=== PATIENT | female | born 1980 | race Caucasian/White ===

== ENCOUNTER → 2016-03-11 | Outpatient (CLI) | payer OTHER ==
[~2016-03-11] MED LIST: ADVIN25050 INH; ALBU1AER9 INH; BISA10SU7 PR; BNT20 PO; CYAN100020 PO; DIPH25CA65 PO; DSY100 PO; EFF75 PO; ETONMIS VAGRING; FLUO40CA8 PO; FLVHFA44 INH; FRN PO; GABA-112 PO; LYR50 PO; MULT-506 PO; NAPR-1168 PO; POLY335019 PO; PROM25TA9 PO; SUMA100T16 PO; SYMIN160 INH; TIZA4CAP PO; TRAZ50TA35 PO; UNABLE; VNTHFA/IN INH; ZNF/4 PO
== END | disposition home or self-care (01) ==
LOC: C.PAPS 14:22
PROVIDERS: ATTEND Obstetrics & Gynecology
DX: R87.610 Atypical squamous cells of undetermined significance on cytologic smear of cervix (ASC-US) (principal)

== ENCOUNTER → 2016-03-11 | Outpatient (CLI) | payer OTHER | END | disposition home or self-care (01) | LOC: C.PATHSPEC 13:31 | PROVIDERS: ATTEND Obstetrics & Gynecology | DX: N72 Inflammatory disease of cervix uteri (principal) ==

== ENCOUNTER 2016-05-19 12:00 | Emergency (ER) | payer OTHER ==
[~2016-05-19] VITALS: Ht 160 cm; Wt 58.4 kg
[~2016-05-19 12:00] MED LIST changes: -BISA10SU7 PR; -CYAN100020 PO; -DIPH25CA65 PO; -DSY100 PO; -EFF75 PO; -ETONMIS VAGRING; -FLVHFA44 INH; -LYR50 PO; -MULT-506 PO; -NAPR-1168 PO; -POLY335019 PO; -PROM25TA9 PO; -SUMA100T16 PO; -SYMIN160 INH; -TIZA4CAP PO; -TRAZ50TA35 PO; -VNTHFA/IN INH; -ZNF/4 PO
[2016-05-19 12:16] VITALS: TEMP 36.8; O2SAT 99; Ht 160 cm; Wt 58.4 kg
[2016-05-19] MEDS ORDERED: DiphenhydrAMINE HCL 50 MG/ML VIAL IV STA (12:21)
[2016-05-19] MEDS ORDERED: MoRPHine SULFATE 4 MG/ML 1 ML CARP\\VIAL IV STA (12:21)
[2016-05-19] MEDS ORDERED: SODIUM CHLORIDE 0.9% 1000ML 1,000 ML IV STA (12:21)
[2016-05-19] MEDS ORDERED: KETOROLAC TROMETHAMINE 30 MG/ML VIAL IV STA (12:21)
[2016-05-19] MEDS ORDERED: PROCHLORPERAZINE 5 MG/ML 2 ML VIAL IV STA (12:21)
[2016-05-19] MEDS ORDERED: DEXAMETHASONE SOD INJ 10 MG/ML VIAL IV ONE (12:30)
[2016-05-19] MEDS ORDERED: TRAZ50TA35 PO (12:58)
[2016-05-19] MEDS ORDERED: SYMIN160 INH (12:58)
[2016-05-19 14:32] VITALS: BP 117/74; PULSE 82
--- NOTE | 2016-05-19 15:20 | EMERGENCY ROOM VISIT NOTE ---
History Report prepared by Karen: Becky Lanza Under the Supervision of: Dr. Rian Antonio M.D. First contact with patient: 12:19 Chief Complaint: HEADACHE Stated Complaint: MIGRAINE, NAUSEA History of Present Illness The patient is a 35 year old female who presents to the Emergency Room with complaints of a persistent headache starting 2 days ago around 0200. The pain is present in the back of her head and is present on both sides of her head. She has experienced this pain before and can usually resolve it with Imitrex, but has experienced no relief this time. She has had surgery for migraines and has presented to the ED before with similar symptoms. In the ED, she can usually find relief with a cocktail of drugs. She is experiencing some nausea and sensitivity to light. She denies any falls, vomiting, fever, or other symptoms. Source of History: patient Onset: 2 days ago Position: head Quality: ache Timing: other (persistent) Modifying Factors (Worsening): other (light) Associated Symptoms: + nausea, No fevers, No vomiting Note: Pt reports no relief with Imitrex. Review of Systems See HPI for pertinent positives & negatives. A total of 10 systems reviewed and were otherwise negative. Past Medical & Surgical Medical Problems: (1) Asthma (2) Bronchitis (3) Pneumonia Family History Cancer Diabetes mellitus FH: heart disease Hypertension Kidney stones Social History Smoking Status: Never Smoker Alcohol Use: none Marital Status: single Housing Status: lives with family Occupation Status: employed Current/Historical Medications Scheduled Albuterol Hfa (Ventolin Hfa), 2-4 PUFFS INH Q6H Budesonide/Formoterol Fumarate (Symbicort 160/4.5 Inhaler ), 2 PUFFS INH BID Tizanidine (Tizanidine HCl), 2 MG PO DAILY Trazodone Hcl (Trazodone), 50-100 MG PO HS Venlafaxine Hcl (Effexor), 150 MG PO DAILY Scheduled PRN Promethazine Hcl (Phenergan), 25 MG PO Q6H PRN for Nausea Allergies Coded Allergies: Codeine (Verified Allergy, Unknown, ITCHINESS, 05/19/16) Hydrocodone (Verified Allergy, Unknown, 05/19/16) Physical Exam Vital Signs Date Time Temp Pulse Resp B/P Pulse Ox O2 Delivery O2 Flow Rate FiO2 05/19/16 14:32 82 117/74 05/19/16 12:16 36.8 89 18 142/87 99 Room Air Physical Exam GENERAL: Patient is in no acute distress. HEENT: No acute trauma, normocephalic atraumatic, mucous membranes moist, no nasal congestion, no scleral icterus. Pupils equal and reactive to light. NECK: No stridor, no adenopathy, no meningismus, trachea is midline. LUNGS: Clear to auscultation bilaterally, no wheeze, no rhonchi, breath sounds equal. HEART: Without murmurs gallops or rubs, regular rate and rhythm. ABDOMEN: Soft, nontender, bowel sounds positive, no hernias, no peritonitis. EXTREMITIES: No cyanosis or edema, full range of motion of all the joints without pain or difficulty, no signs for acute trauma. NEUROLOGIC: Oriented x 3, no acute motor or sensory deficits, no focal weakness. No cerebellar deficits. SKIN: No rash, no jaundice, no diaphoresis Medical Decision & Procedures Medications Administered Medications (Trade) Dose Ordered Sig/Wagner Route Start Time Stop Time Status Last Admin Dose Admin Sodium Chloride (Nss 1000ml) 1,000 ml @ 999 mls/hr Q1H1M STAT IV 05/19/16 12:21 05/19/16 13:21 DC 05/19/16 12:47 999 MLS/HR Prochlorperazine Edisylate (Compazine Inj) 10 mg NOW STAT IV 05/19/16 12:21 05/19/16 12:27 DC 05/19/16 12:46 10 MG Ketorolac Tromethamine (Toradol Inj) 30 mg NOW STAT IV 05/19/16 12:21 05/19/16 12:27 DC 05/19/16 12:42 30 MG Diphenhydramine HCl (Benadryl Inj) 50 mg NOW STAT IV 05/19/16 12:21 05/19/16 12:27 DC 05/19/16 12:42 50 MG Morphine Sulfate (MoRPHine SULFATE INJ) 4 mg NOW STAT IV 05/19/16 12:21 05/19/16 12:27 DC 05/19/16 12:45 4 MG Dexamethasone Sodium Phosphate (Decadron Inj) 10 mg NOW ONCE IV 05/19/16 12:30 05/19/16 12:31 DC 05/19/16 12:43 10 MG ED Course 1220: The patient was evaluated in room C11. A complete history and physical exam was performed. 1221: Morphine Sulfate 4 mg IV, Benadryl Inj 50 mg IV, Toradol Inj 30 mg IV, Compazine Inj 10 mg IV, NSS 1000 ml @ 999 mls/hr IV. 1230: Decadron Inj 10 mg IV. 1420: I reevaluated the patient. She is feeling better. I discussed the treatment plan with her. She verbalized understanding and agreement. She will be discharged home. Medical Decision Differential diagnoses: migraine headache, meningitis, intracranial bleeding, tension headache, dehydration, trauma. The patient presents with a headache that she describes as a migraine. She has had previous similar migraines. On exam, she is not febrile or toxic. There are no focal neurologic findings. She has no evidence for meningismus. The patient received IV saline, IV Decadron, IV Compazine, IV Benadryl, IV Toradol and IV morphine. She feels markedly better. The patient's headache does sound migrainous. She is doing well and she is feeling improved. She is being discharged home. Impression Primary Impression: Headache Scribe Attestation The scribe's documentation has been prepared under my direction and personally reviewed by me in its entirety. I confirm that the note above accurately reflects all work, treatment, procedures, and medical decision making performed by me. Departure Information Dispostion Home / Self-Care Referrals Jose Alfredo Osman MD Forms HOME CARE DOCUMENTATION FORM, IMPORTANT VISIT INFORMATION Patient Instructions [facility] Additional Instructions rest sleep fluids return if worsening
[2016-08-11] MEDS ORDERED: EFF75 PO (12:58)
[2016-08-11] MEDS ORDERED: VNTHFA/IN INH (12:58)
[2016-08-11] MEDS ORDERED: ZNF/4 PO (12:58)
[2016-08-11] MEDS ORDERED: PROM25TA9 PO (12:58)
== END 2016-05-19 14:54 | disposition home or self-care (01) ==
LOC: C.EDB 12:03 → C.EDC 14:54
DX: R51 Headache (principal); J45.909 Unspecified asthma, uncomplicated; Z80.9 Family history of malignant neoplasm, unspecified; Z83.3 Family history of diabetes mellitus; Z82.49 Family history of ischemic heart disease and other diseases of the circulatory system; Z84.1 Family history of disorders of kidney and ureter; Z79.899 Other long term (current) drug therapy

== ENCOUNTER 2016-07-21 20:39 | Emergency (ER) | payer OTHER ==
[~2016-07-21] VITALS: Ht 160 cm; Wt 61.1 kg
[~2016-07-21 20:39] MED LIST changes: -ADVIN25050 INH; -ALBU1AER9 INH; -BNT20 PO; -FLUO40CA8 PO; -FRN PO; -GABA-112 PO; +SYMIN160 INH; +TRAZ50TA35 PO; -UNABLE
[2016-07-21 20:41] VITALS: TEMP 36.9; Ht 160 cm; Wt 61.1 kg
[2016-07-21] MEDS ORDERED: LORAZEPAM 2 MG/ML 1 ML VIAL IV STA (20:58)
[2016-07-21] MEDS ORDERED: KETOROLAC TROMETHAMINE 30 MG/ML VIAL IV STA (20:58)
[2016-07-21] MEDS ORDERED: SODIUM CHLORIDE 0.9% 1000ML 1,000 ML IV STA (20:58)
[2016-07-21] MEDS ORDERED: DiphenhydrAMINE HCL 50 MG/ML VIAL IV STA (20:58)
[2016-07-21] MEDS ORDERED: PROCHLORPERAZINE 5 MG/ML 2 ML VIAL IV STA (20:58)
[2016-07-21] MEDS ORDERED: HYDROmorphone INJ 0.5 MG/0.5 ML SYR IV STA ×2 (20:58→22:41)
[2016-07-21] MEDS ORDERED: DEXAMETHASONE SOD INJ 10 MG/ML VIAL IV ONE (21:00)
--- NOTE | 2016-07-21 21:42 | EMERGENCY ROOM VISIT NOTE ---
History Report prepared by Karen: Beatrice Su Under the Supervision of: Dr. Kristie Leary D.O. 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 The patient rates her pain as a 10/10 in severity. The patient states that she has had chronic daily migraines since childhood and sees a neurologist and pain management to deal with her migraines. The patient states that she has a family history of chronic migraines. 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 She states that this migraine came on fast and that they usually build over time instead. 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 That patient states at the weather, cycle and allergies also seem to worsen her headaches when they change. The patient states that she recently had cold symptoms including a cough which she recovered. She denies any chills or fevers. She states that with her migraine she has numbness and tingling in both hands and in her face as well as nausea and vomiting.She states that she also has dizziness and lightheadedness with her migraine and is unable to look up due to that. She denies any recent travel or change in medications. The patient states that light worsens her migraine. The patient states that last year she had 2 decompression surgeries and is currently waiting on getting a stimulator. 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 Review of Systems See HPI for pertinent positives & negatives. A total of 10 systems reviewed and were otherwise negative. Past Medical & Surgical Medical Problems: (1) Asthma (2) Bronchitis (3) Pneumonia Family History Cancer Diabetes mellitus FH: heart disease Hypertension Kidney stones Social History Smoking Status: Never Smoker Alcohol Use: none Marital Status: single Housing Status: lives with family Occupation Status: employed Current/Historical Medications Scheduled Bisacodyl (Bisac-Evac), 10 MG MS DAILY/PRN Cyanocobalamin (Vitamin B12), 1,000 MCG PO DAILY Fluticasone Propionate (Flovent Hfa), 2 PUFFS INH BID Multivitamin (Multivitamin), 1 TAB PO DAILY Naproxen Ds (Naprosyn Ds), 550 MG PO PRN/UD Pregabalin (Lyrica), 50 MG PO BID Sumatriptan Succinate (Imitrex), 100 MG PO PRN/UD Tizanidine (Tizanidine HCl), 8 MG PO HS Trazodone Hcl (Trazodone), 50-100 MG PO HS Venlafaxine Hcl (Effexor), 150 MG PO DAILY Scheduled PRN Albuterol Hfa (Ventolin Hfa), 2-4 PUFFS INH Q6H PRN for Wheezing Diphenhydramine Hcl (Benadryl Allergy), 25 MG PO Q8 PRN for UNDECIDED Polyethylene Glycol 3350 (Miralax), 17 GM PO DAILY PRN for Constipation Promethazine Hcl (Phenergan), 25 MG PO Q6H PRN for Nausea Allergies Coded Allergies: Codeine (Verified Allergy, Unknown, ITCHINESS, 05/19/16) Hydrocodone (Verified Allergy, Unknown, 05/19/16) Physical Exam Vital Signs Date Time Temp Pulse Resp B/P Pulse Ox O2 Delivery O2 Flow Rate FiO2 07/21/16 23:02 70 20 115/66 98 07/21/16 22:25 96 20 109/59 96 Room Air 07/21/16 21:27 105 20 147/91 97 Room Air 07/21/16 20:41 36.9 77 18 143/94 98 Room Air Physical Exam GENERAL: alert, well appearing, well nourished, no distress, non-toxic EYE EXAM: normal conjunctiva, PERRL and EOM's grossly intact. Photophobic. OROPHARYNX: no exudate, no erythema, lips, buccal mucosa, and tongue normal and mucous membranes are moist NECK: supple, no nuchal rigidity, no adenopathy, non-tender LUNGS: Clear to auscultation. Normal chest wall mechanics HEART: no murmurs, S1 normal and S2 normal ABDOMEN: abdomen soft, non-tender, normo-active bowel sounds, no masses, no rebound or guarding. BACK: Back is symmetrical on inspection and there is no deformity, no midline tenderness, no CVA tenderness. SKIN: no rashes and no bruising UPPER EXTREMITIES: upper extremities are grossly normal. LOWER EXTREMITIES: No pitting edema. NEURO EXAM: Normal sensorium, cranial nerves II-XII grossly intact, normal speech, no gross weakness of arms, no gross weakness of legs. No drift. Finger to nose intact. Gross sensation intact. Medical Decision & Procedures Medications Administered Medications (Trade) Dose Ordered Sig/Wagner Route Start Time Stop Time Status Last Admin Dose Admin Sodium Chloride (Nss 1000ml) 1,000 ml @ 999 mls/hr Q1H1M STAT IV 07/21/16 20:58 07/21/16 21:58 DC 07/21/16 21:24 999 MLS/HR Ketorolac Tromethamine (Toradol Inj) 30 mg NOW STAT IV 07/21/16 20:58 07/21/16 21:00 DC 07/21/16 21:26 30 MG Diphenhydramine HCl (Benadryl Inj) 25 mg NOW STAT IV 07/21/16 20:58 07/21/16 21:00 DC 07/21/16 21:26 25 MG Lorazepam (Ativan Inj) 1 mg NOW STAT IV 07/21/16 20:58 07/21/16 21:00 DC 07/21/16 21:25 1 MG Dexamethasone Sodium Phosphate (Decadron Inj) 10 mg NOW ONCE IV 07/21/16 21:00 07/21/16 21:01 DC 07/21/16 21:25 10 MG Hydromorphone HCl (Dilaudid Inj) 0.5 mg NOW STAT IV 07/21/16 20:58 07/21/16 21:00 DC 07/21/16 20:58 0.5 MG Prochlorperazine Edisylate (Compazine Inj) 5 mg NOW STAT IV 07/21/16 20:58 07/21/16 21:00 DC 07/21/16 21:26 5 MG Hydromorphone HCl (Dilaudid Inj) 0.25 mg NOW STAT IV 07/21/16 22:41 07/21/16 22:42 DC 07/21/16 22:58 0.25 MG ED Course 2050: The patient was evaluated in room C3. A complete history and physical exam was performed. 2057: Ordered Compazine Inj 5 mg IV, Dilaudid Inj 0.5 mg IV, Ativan Inj 1 mg IV , Benadryl Inj 25 mg IV, Toradol Inj 30 mg IV, Sodium Chloride 1,000 ml @ 999 mls/hr IV. 2100: Ordered Decadron Inj 10 mg IV. 2139: I reevaluated the patient and she was sleeping. []: Upon reevaluation, the patient is feeling better. I discussed the findings and the treatment plan with the patient. She verbalizes agreement and understanding. The patient was discharged home. Medical Decision The patient is a 35 year old female who presents to the ED with complaints of a migraine. Differential diagnoses include but are not limited to migraine headache, meningitis, sinusitis, CO exposure, ICH, SAH, infection, tumor, headache, sinus thrombosis, arterial dissection, as well as others were entertained. Patient well-appearing here despite complaints. Patient states acute exacerbation of her usual chronic migraines which she is had previously. States headache is not the worst of her life, no recent illness or fevers, doubt meningitis/encephalitis. Doubt subarachnoid hemorrhage. Patient with normal nonfocal neuro exam at bedside, doubt CVA or dissection. No other change in symptoms, patient has had prior neuroimaging and does regular see neurology. Doubt intracranial abscess or tumor. Patient's vital signs stable throughout, was tolerating sips of by mouth at bedside, was improved following medication here. Discussed symptoms to watch and return for, close follow-up with neurology, she verbalized understanding was agreeable with plan. Impression Primary Impression: Headache Scribe Attestation The scribe's documentation has been prepared under my direction and personally reviewed by me in its entirety. I confirm that the note above accurately reflects all work, treatment, procedures, and medical decision making performed by me. Departure Information Dispostion Home / Self-Care Forms HOME CARE DOCUMENTATION FORM, IMPORTANT VISIT INFORMATION Patient Instructions My [facility] Additional Instructions Please continue regular medications as prescribed. Please follow-up with your neurologist. If you have any recurrent or worsening pain, develop vomiting, fevers, dizziness, vision changes, or any other new concerns, please return the emergency room. Problem Qualifiers Primary Impression: Headache Headache type: other headache syndrome Qualified Codes: G44.89 - Other headache syndrome
[2016-07-21] MEDS ORDERED: LYR50 PO (21:46)
[2016-07-21] MEDS ORDERED: CYAN100020 PO (21:51)
[2016-07-21 23:02] VITALS: BP 115/66; PULSE 70; O2SAT 98
[2016-08-11] MEDS ORDERED: EFF75 PO (12:58)
[2016-08-11] MEDS ORDERED: PROM25TA9 PO (12:58)
[2016-08-11] MEDS ORDERED: VNTHFA/IN INH (12:58)
[2016-08-11] MEDS ORDERED: ZNF/4 PO (12:58)
== END 2016-07-21 23:07 | disposition home or self-care (01) ==
LOC: C.EDB 20:39 → C.EDC 23:07
DX: G44.89 Other headache syndrome (principal); J45.909 Unspecified asthma, uncomplicated; Z83.3 Family history of diabetes mellitus; Z82.49 Family history of ischemic heart disease and other diseases of the circulatory system

== ENCOUNTER 2016-07-28 17:54 | Emergency (ER) | payer OTHER ==
[~2016-07-28] VITALS: Ht 160 cm; Wt 62.5 kg
[~2016-07-28 17:54] MED LIST changes: +CYAN100020 PO; +LYR50 PO; -SYMIN160 INH
[2016-07-28 18:03] VITALS: TEMP 36.7; Ht 160 cm; Wt 62.5 kg
[2016-07-28] MEDS ORDERED: SODIUM CHLORIDE 0.9% 1000ML 1,000 ML IV STA (18:13)
[2016-07-28] MEDS ORDERED: DiphenhydrAMINE HCL 50 MG/ML VIAL IV STA (18:13)
[2016-07-28] MEDS ORDERED: PROCHLORPERAZINE 5 MG/ML 2 ML VIAL IV STA (18:13)
[2016-07-28] MEDS ORDERED: KETOROLAC TROMETHAMINE 30 MG/ML VIAL IV STA (18:13)
[2016-07-28] MEDS ORDERED: MoRPHine SULFATE 10 MG/ML CARP/VIAL IV STA (18:13)
[2016-07-28] MEDS ORDERED: DEXAMETHASONE SOD INJ 10 MG/ML VIAL IV ONE (18:15)
[2016-07-28] MEDS ORDERED: PROCHLORPERAZINE INJ 10 MG in SYRINGE 8 ML IV SCH (18:30)
[2016-07-28] MEDS ORDERED: MoRPHine SULFATE 4 MG/ML 1 ML CARP\\VIAL IV STA (19:27)
--- NOTE | 2016-07-28 20:23 | EMERGENCY ROOM VISIT NOTE ---
History First contact with patient: 18:07 Chief Complaint: HEADACHE Stated Complaint: MIGRAINE History of Present Illness The patient is a 35 year old female who presents to the Emergency Room with complaints of migraine headache. The patient states that she gets migraine headaches every day. She states the current headache she has had no relief since Thursday. She has taken all her migraine medicines without any change in the headache. The patient states the headache is on the front of her head and also at the back of her head. She rates it at a 10 out of 10. She also admits to visual changes of an aura with sparkles and tunnel vision. The patient admits to nausea but denies any vomiting. She does admit she not has not been eating or drinking very much due to the pain. The patient states the symptoms are typical for her migraines. She is currently seeing Dr. Matthews for her migraines and has an appointment to see pain management. The patient states this is not the worst headache of her life. Review of Systems 10 system review was performed and was negative unless stated otherwise history of present illness. Past Medical/Surgical History Medical Problems: (1) Asthma (2) Bronchitis (3) Pneumonia Migraines Family History Cancer Diabetes mellitus FH: heart disease Hypertension Kidney stones Social History Smoking Status: Never Smoker Alcohol Use: none Marital Status: single Housing Status: lives with family Occupation Status: employed Current/Historical Medications Scheduled Bisacodyl (Bisac-Evac), 10 MG NV DAILY/PRN Cyanocobalamin (Vitamin B12), 1,000 MCG PO DAILY Fluticasone Propionate (Flovent Hfa), 2 PUFFS INH BID Multivitamin (Multivitamin), 1 TAB PO DAILY Naproxen Ds (Naprosyn Ds), 550 MG PO PRN/UD Pregabalin (Lyrica), 50 MG PO BID Sumatriptan Succinate (Imitrex), 100 MG PO PRN/UD Tizanidine (Tizanidine HCl), 8 MG PO HS Trazodone Hcl (Trazodone), 50-100 MG PO HS Venlafaxine Hcl (Effexor), 150 MG PO DAILY Scheduled PRN Albuterol Hfa (Ventolin Hfa), 2-4 PUFFS INH Q6H PRN for Wheezing Diphenhydramine Hcl (Benadryl Allergy), 25 MG PO Q8 PRN for UNDECIDED Polyethylene Glycol 3350 (Miralax), 17 GM PO DAILY PRN for Constipation Promethazine Hcl (Phenergan), 25 MG PO Q6H PRN for Nausea Allergies Coded Allergies: Codeine (Verified Allergy, Unknown, ITCHINESS, 05/19/16) Hydrocodone (Verified Allergy, Unknown, 05/19/16) Physical Exam Vital Signs Date Time Temp Pulse Resp B/P Pulse Ox O2 Delivery O2 Flow Rate FiO2 07/28/16 19:38 75 16 128/72 97 Room Air 07/28/16 18:03 36.7 92 18 152/91 95 Room Air Physical Exam GENERAL: 35-year-old white female appears in distress secondary to headache. MENTAL STATUS: Patient is alert and oriented x3 EYES: PERRLA. EOMs intact. EARS: Canals clear. TMs without fluid level noted. NECK: Supple, no lymphadenopathy noted. No carotid bruits noted. LUNGS: Clear auscultation without wheezes rales or rhonchi. CARDIAC: Regular rate and rhythm without murmur. Pulses is full and equal throughout. ABDOMEN: Positive bowel sounds all 4 quadrants. Soft, nontender to palpation without organomegaly or masses. NEURO:Cranial nerves two through 12 intact. Cerebellar function intact with [id number]. Fine motor intact with alternating finger motions. Medical Decision & Procedures Medications Administered Medications (Trade) Dose Ordered Sig/Wagner Route Start Time Stop Time Status Last Admin Dose Admin Sodium Chloride (Nss 1000ml) 1,000 ml @ 999 mls/hr Q1H1M STAT IV 07/28/16 18:13 07/28/16 19:13 DC 07/28/16 18:45 999 MLS/HR Diphenhydramine HCl (Benadryl Inj) 50 mg NOW STAT IV 07/28/16 18:13 07/28/16 18:15 DC 07/28/16 18:45 50 MG Ketorolac Tromethamine (Toradol Inj) 30 mg NOW STAT IV 07/28/16 18:13 07/28/16 18:15 DC 07/28/16 18:46 30 MG Dexamethasone Sodium Phosphate (Decadron Inj) 10 mg NOW ONCE IV 07/28/16 18:15 07/28/16 18:16 DC 07/28/16 18:46 10 MG Morphine Sulfate 6 mg 6 mg NOW STAT IV 07/28/16 18:13 07/28/16 18:15 DC 07/28/16 18:46 6 MG Prochlorperazine Edisylate/Syringe (Compazine Inj/ Syringe) 10 ml @ 5 mls/min TODAY@1830 IV 07/28/16 18:30 07/28/16 18:31 DC 07/28/16 18:48 5 MLS/MIN Morphine Sulfate (MoRPHine SULFATE INJ) 4 mg NOW STAT IV 07/28/16 19:27 07/28/16 19:37 DC 07/28/16 19:37 4 MG ED Course The patient was evaluated. The patient's EMR and medication list was reviewed. IV access was obtained. The patient was given 1 L normal saline wide-open. The patient was given Compazine 10 mg IV, Toradol 30 mg IV, Benadryl 50 mg IV, morphine 6 mg IV and Decadron 10 mg IV. The patient was reevaluated and stated that her pain was only slightly improved. The patient was then given an additional 4 mg of morphine IV. She is again reevaluated and now stated that her headache was much better. The patient was discharged home with her driving. Medical Decision Differential includes: Acute intracranial bleed, trauma, meningitis, encephalitis, increased intracranial pressure, mass or mass effect, facial or dental infection, temporal arteritis, CVA, TIA, acute hypertensive emergency, sinusitis, carbon monoxide exposure. The patient presented with her typical migraine headache symptoms therefore no additional diagnostic imaging was performed. Impression Primary Impression: Migraine Departure Information Dispostion Home / Self-Care Condition GOOD Referrals No Doctor, Assigned (PCP) Forms HOME CARE DOCUMENTATION FORM, IMPORTANT VISIT INFORMATION Patient Instructions ED Headache Migraine, My [facility] Additional Instructions Go home and rest in a dark room for the remainder of the evening. Do not drive for 8 hours. Continue all current medications as prescribed for your migraines. Keep scheduled appointment with Dr. Matthews as well as pain management. If your symptoms worsen again, return to ER as needed. Problem Qualifiers Primary Impression: Migraine Migraine type: with aura Intractability: intractable
[2016-07-28 20:34] VITALS: BP 124/78; PULSE 85; O2SAT 97
[2016-08-11] MEDS ORDERED: VNTHFA/IN INH (12:58)
[2016-08-11] MEDS ORDERED: PROM25TA9 PO (12:58)
[2016-08-11] MEDS ORDERED: ZNF/4 PO (12:58)
[2016-08-11] MEDS ORDERED: EFF75 PO (12:58)
== END 2016-07-28 20:35 | disposition home or self-care (01) ==
LOC: C.EDB 17:55 → C.EDC 20:35
DX: G43.909 Migraine, unspecified, not intractable, without status migrainosus (principal); J45.909 Unspecified asthma, uncomplicated; Z83.3 Family history of diabetes mellitus; Z82.49 Family history of ischemic heart disease and other diseases of the circulatory system

== ENCOUNTER 2016-08-11 16:51 | Emergency (ER) | payer OTHER ==
[~2016-08-11] VITALS: Ht 160 cm; Wt 60.8 kg
[~2016-08-11 16:51] MED LIST changes: +EFF75 PO; +PROM25TA9 PO; +VNTHFA/IN INH; +ZNF/4 PO
[2016-08-11 16:58] VITALS: TEMP 36.9; Ht 160 cm; Wt 60.8 kg
[2016-08-11] MEDS ORDERED: DiphenhydrAMINE HCL 50 MG/ML VIAL IM STA (17:44)
[2016-08-11] MEDS ORDERED: PROCHLORPERAZINE 5 MG/ML 2 ML VIAL IM STA (17:44)
[2016-08-11] MEDS ORDERED: KETOROLAC TROMETHAMINE 60 MG/2 ML VIAL IM STA (17:44)
[2016-08-11] MEDS ORDERED: MoRPHine SULFATE 10 MG/ML CARP/VIAL IM STA (18:09)
[2016-08-11] MEDS ORDERED: DSY100 PO (18:51)
[2016-08-11] MEDS ORDERED: ETONMIS VAGRING (18:51)
[2016-08-11] MEDS ORDERED: TIZA4CAP PO (18:51)
[2016-08-11 19:04] VITALS: BP 131/84; PULSE 81; O2SAT 97
--- NOTE | 2016-08-11 21:08 | EMERGENCY ROOM VISIT NOTE ---
History Report prepared by Karen: Caro Helms Under the Supervision of: Dr. Andi Andres D.O. First contact with patient: 17:34 Chief Complaint: HEADACHE Stated Complaint: MIGRAINE History of Present Illness The patient is a 36 year old female who presents to the Emergency Room with complaints of a worsening right-sided headache that started 2 days ago. She was unable to relieve her headache with Tizanidine. The patient has a history of migraines and occipital neuralgia. She states that her current headache is consistent with her typical migraines. The patient states that she has been getting migraines every day since she was a teenager. The patient follows with a neurologist and pain management for her headaches. The headache is worse with loud sounds. She is also experiencing photophobia and nausea. She denies fevers , changes in vision, neck stiffness, and vomiting. No weakness or numbness in her arms or legs. No fevers greater than 100.4. Source of History: patient Onset: 2 days ago Position: head (right-sided) Quality: other (headache) Timing: worsening Modifying Factors (Worsening): other (loud sounds) Associated Symptoms: + nausea, No fevers, No vomiting Note: photophobia, no changes in vision, no neck stiffness Review of Systems See HPI for pertinent positives & negatives. A total of 10 systems reviewed and were otherwise negative. Past Medical & Surgical Medical Problems: (1) Asthma (2) Bronchitis (3) Pneumonia Family History Cancer Diabetes mellitus FH: heart disease Hypertension Kidney stones Social History Smoking Status: Never Smoker Alcohol Use: none Marital Status: single Housing Status: lives with family Occupation Status: employed Current/Historical Medications Scheduled Etonogestrel/Ethinyl Estradiol (Nuvaring), 1 EA VAGRING MONTHLY Multivitamin (Multivitamin), 1 TAB PO DAILY Tizanidine (Tizanidine HCl), 8 MG PO HS Tizanidine (Zanaflex), 4 MG PO QAM Trazodone HCl (Trazodone HCl), 100-200 MG PO HS Venlafaxine Hcl (Effexor), 150 MG PO DAILY Scheduled PRN Albuterol Hfa (Ventolin Hfa), 2-4 PUFFS INH Q6H PRN for Wheezing Bisacodyl (Bisac-Evac), 10 MG [place] DAILY PRN for Constipation Diphenhydramine Hcl (Benadryl Allergy), 25 MG PO Q8 PRN for UNDECIDED Fluticasone Propionate (Flovent Hfa), 2 PUFFS INH BID PRN for Shortness of Breath Naproxen Ds (Naprosyn Ds), 550 MG PO UD PRN for Headache Polyethylene Glycol 3350 (Miralax), 17 GM PO DAILY PRN for Constipation Promethazine Hcl (Phenergan), 25 MG PO Q6H PRN for Nausea Sumatriptan Succinate (Imitrex), 50-100 MG PO UD PRN for Migraine Allergies Coded Allergies: Codeine (Verified Allergy, Unknown, ITCHINESS, 05/19/16) Hydrocodone (Verified Allergy, Unknown, 05/19/16) Physical Exam Vital Signs Date Time Temp Pulse Resp B/P (MAP) Pulse Ox O2 Delivery O2 Flow Rate FiO2 08/11/16 19:04 81 18 131/84 97 Room Air 08/11/16 16:58 36.9 78 18 116/76 98 Room Air Physical Exam GENERAL: alert, sitting up in bed, well appearing, well nourished, no distress , non-toxic EYE EXAM: normal conjunctiva, PERRL and EOM's intact OROPHARYNX: no exudate, no erythema, lips, buccal mucosa, and tongue normal and mucous membranes are moist NECK: supple, no nuchal rigidity, no adenopathy, non-tender, negative Brudzinski LUNGS: Clear to auscultation. Normal chest wall mechanics HEART: no murmurs, S1 normal and S2 normal ABDOMEN: abdomen soft, non-tender, normo-active bowel sounds, no masses, no rebound or guarding. BACK: Back is symmetrical on inspection and there is no deformity, no midline tenderness, no CVA tenderness. SKIN: no rashes and no bruising UPPER EXTREMITIES: upper extremities are grossly normal. LOWER EXTREMITIES: No pitting edema. NEURO EXAM: Normal sensorium, cranial nerves II-XII intact, normal speech, no weakness of arms, no weakness of legs. No drift. Finger to nose intact. Gross sensation intact. Medical Decision & Procedures Medications Administered Medications (Trade) Dose Ordered Sig/Wagner Route Start Time Stop Time Status Last Admin Dose Admin Prochlorperazine Edisylate (Compazine Inj) 10 mg NOW STAT IM 08/11/16 17:44 08/11/16 17:45 DC 08/11/16 17:57 10 MG Diphenhydramine HCl (Benadryl Inj) 50 mg NOW STAT IM 08/11/16 17:44 08/11/16 17:45 DC 08/11/16 17:57 50 MG Ketorolac Tromethamine (Toradol Inj) 60 mg NOW STAT IM 08/11/16 17:44 08/11/16 17:45 DC 08/11/16 17:57 60 MG Morphine Sulfate (MoRPHine SULFATE INJ) 6 mg NOW STAT IM 08/11/16 18:09 08/11/16 18:10 DC 08/11/16 18:19 6 MG ED Course ED COURSE: Vital signs were reviewed and showed normal. The patients medical record was reviewed The above diagnostic studies were performed and reviewed. ED treatments and interventions as stated above. 1737: The patient was evaluated in room C2. A complete history and physical examination was performed. 1743: Ordered Toradol Inj 60 mg IM, Benadryl Inj 50 mg IM, Compazine Inj 10 mg IM 1806: The patient requested to have an IV placed to see her medications, but I declined. She asked for Morphine for her headache. 1808: Ordered Morphine Sulfate 6 mg IM 1900: Upon reevaluation, the patient is doing well and her headache has improved. I discussed my findings with the patient and she understands and agrees with the treatment plan. Based on the patients age, coexisting illnesses, exam and lab findings the decision to treat as an outpatient was made. The patient remained stable while under my care. The patient appeared well at the time of discharge. Medical Decision Differential Diagnosis includes but is not limited to headache, tension headache , cluster headache, migraine, subarachnoid hemorrhage, meningitis, mass, central venous thrombus, concussion, trauma and epidural/subdural hemorrhage. Medication Reconciliation: I attest that I have personally reviewed the patient' s current medication list. Blood pressure screening: Patient was found to have normal blood pressure on screening and does not require follow-up. Patient is a 28-year-old female who presents the ER for a headache which is consistent with her previous migraines. It's unchanged in anyway, shape or form. She is completely neurologically intact on exam. No signs of meningitis or encephalitis. Afebrile. Vitals are unremarkable. She follows apparently with Dr. Matthews from [facility]. I am very familiar with this physician and consequently I initially gave the patient IM Toradol, Compazine, and Benadryl. I did not give her narcotics as Dr. Matthews is always very adamant that her patient's did not receive narcotics. Following this the patient became agitated. She requested an IV and narcotics. I refused the IV but did give her IM morphine along with the rest of her medications following discussion noting that Dr. Matthews does not use narcotics. I also stressed that narcotics are not indicated for migraine/headaches and worsen rebound headaches. Patient commented "but it will make this headache feel better." I reluctantly gave her 1 dose of morphine. Following this she was discharged to follow-up with her neurologist as I do not believe this consistent with meningitis, encephalitis or bleed. Discussed with Pt concerning signs and symptoms to watch out for. Pt was instructed to follow up with their PCP and discussed with the patient their option to return to the ED at anytime for persistent or worsening symptoms. The appropriate anticipatory guidance and out- patient management, including indications for return to the emergency department , were explained at length to the patient and understood. Impression Primary Impression: Cephalgia Scribe Attestation The scribe's documentation has been prepared under my direction and personally reviewed by me in its entirety. I confirm that the note above accurately reflects all work, treatment, procedures, and medical decision making performed by me. Departure Information Dispostion Home / Self-Care Referrals No Doctor, Assigned (PCP) Forms HOME CARE DOCUMENTATION FORM, IMPORTANT VISIT INFORMATION Patient Instructions Headache Pain, [facility] Additional Instructions Please follow up with your primary care doctor with in the next 24 hours. Any worsening of your symptoms, please return to the ED immediately. This includes confusion, fevers greater than 100.4, weakness in arms or legs, stiff neck, or any other concerning signs or symptoms from your standpoint. Please do not drive, work, operate heavy machinery for the next 12 hours with the medications are given. Problem Qualifiers Primary Impression: Cephalgia Headache type: unspecified Headache chronicity pattern: chronic headache Intractability: not intractable Qualified Codes: R51 - Headache
[2016-08-11] MEDS ORDERED: DIPH25CA65 PO (21:43)
[2016-08-11] MEDS ORDERED: POLY335019 PO (21:47)
[2016-08-11] MEDS ORDERED: NAPR-1168 PO (21:49)
[2016-08-11] MEDS ORDERED: SUMA100T16 PO (21:53)
[2016-08-11] MEDS ORDERED: BISA10SU7 PR (21:57)
[2016-08-11] MEDS ORDERED: MULT-506 PO (21:58)
[2016-08-11] MEDS ORDERED: FLVHFA44 INH (22:00)
== END 2016-08-11 19:15 | disposition home or self-care (01) ==
LOC: C.EDB 16:51 → C.EDC 19:15
DX: R51 Headache (principal); J45.909 Unspecified asthma, uncomplicated; Z79.899 Other long term (current) drug therapy; Z88.5 Allergy status to narcotic agent; Z80.9 Family history of malignant neoplasm, unspecified; Z83.3 Family history of diabetes mellitus; Z82.49 Family history of ischemic heart disease and other diseases of the circulatory system; Z84.1 Family history of disorders of kidney and ureter

== ENCOUNTER → 2016-12-01 | Outpatient (CLI) | payer OTHER ==
[~2016-12-01] MED LIST changes: +BISA10SU7 PR; -CYAN100020 PO; +DIPH25CA65 PO; +DSY100 PO; +ETONMIS VAGRING; +FLVHFA44 INH; -LYR50 PO; +MULT-506 PO; +NAPR-1168 PO; +POLY335019 PO; +SUMA100T16 PO; +TIZA4CAP PO; -TRAZ50TA35 PO
== END | disposition home or self-care (01) ==
LOC: C.PAPS 09:28
PROVIDERS: ATTEND Obstetrics & Gynecology
DX: N92.0 Excessive and frequent menstruation with regular cycle (principal)

== ENCOUNTER → 2016-12-25 | Outpatient (CLI) | payer OTHER ==
[2016-12-25 13:12] LABS: HEMATOCRIT 36.9 % (37-47); MEAN CELL VOLUME 84.8 fL (80-100); MEAN CORPUSCULAR HGB CONC 33.1 g/dl (32-36); MEAN PLATELET VOLUME 9.5 fL (7.4-10.4); PLATELET COUNT 211 K/uL (130-400); RED BLOOD COUNT 4.35 M/uL (4.2-5.4)
[2016-12-25 13:49] LABS: TOTAL IRON BINDING CAPACITY 507 mcg/dl (250-450)
== END | disposition home or self-care (01) ==
LOC: C.LAB1850 11:41
PROVIDERS: ATTEND Obstetrics & Gynecology
DX: N92.0 Excessive and frequent menstruation with regular cycle (principal); D64.9 Anemia, unspecified